=== PATIENT | female | born 1950 | race Caucasian/White ===

== ENCOUNTER 2018-09-01 16:44 | Emergency (ER) | payer OTHER ==
[~2018-09-01] VITALS: Ht 162.6 cm; Wt 89.4 kg
[2018-09-01] MEDS ORDERED: COZAAR50 MG (16:56)
[2018-09-01] MEDS ORDERED: HYDROCHLOROTHIA25 MG (16:56)
[2018-09-01] MEDS ORDERED: SYNTHROID75 MCG (16:56)
[2018-09-01] MEDS ORDERED: NEURONTIN300 MG (16:57)
[2018-09-01] MEDS ORDERED: CLONAZEPAM1 MG (16:57)
[2018-09-02] MEDS ORDERED: ZOFRAN ODT4 MG SL (00:30)
[2018-09-02] MEDS ORDERED: PEPCID AC20 MG PO (00:30)
[2018-09-02] MEDS ORDERED: MECLIZINE HCL25 MG PO (00:30)
[2018-09-02] MEDS ORDERED: LEVSIN/SL0.125 MG SL (00:30)
== END 2018-09-02 00:56 | disposition home or self-care (01) ==
LOC: ER 16:44
DX: R42 Dizziness and giddiness (principal); E86.0 Dehydration; K29.70 Gastritis, unspecified, without bleeding